=== PATIENT | male | born 1975 | race Caucasian/White ===

== ENCOUNTER 2021-06-26 07:48 | Emergency (ER) | payer MEDICARE ==
[2021-06-26 08:06] LABS: BASOPHIL 0.2 % (0-2); EOSINOPHIL 0 % (0-5); HCT 46.9 % (42.0-52.0); HGB 15.2 g/dl (13.2-18.0); LYMPHOCYTE 11.7 % (15-48); MCH 27.3 pg (25.0-31.0); MCHC 32.4 g/dL (32.0-36.0); MCV 84.4 fL (78.0-100.0); MONOCYTE 5.8 % (0-12); MPV 10.1 fL (6.0-9.5); NEUTROPHIL 74.8 % (41-80); NRBC 0.2; PLT 393 K/uL (150-400); RBC 5.56 M/uL (4.70-6.00); RDW 13.8 % (11.5-14.0); WBC 12.7 K/uL (4.0-10.5)
[2021-06-26 08:18] LABS: INR 1.1 (0.9-1.2); PROTHROMBIN TIME 13.6 SECONDS (11.8-13.4); PTT 25.3 SECONDS (24.4-34.7)
[2021-06-26 08:27] LABS: ALBUMIN 2.6 g/dL (3.4-5.0); BILIRUBIN - TOTAL 0.9 mg/dL (0.2-1.0); CREATININE 0.9 mg/dL (0.67-1.17); GLOBULIN (CALCULATION) 4.8 g/dL; MAGNESIUM 2.8 mg/dL (1.8-2.4); POTASSIUM 3.7 mmol/L (3.5-5.1); TOTAL PROTEIN 7.4 g/dL (6.4-8.2)
[2021-06-26 08:33] LABS: D-DIMER 3.15 ug/mLFEU (0.00-0.41); LACTIC ACID 3.2 mmol/L (0.4-1.9); PRO-BNP 416 pg/mL (<125)
== END 2021-06-26 12:50 | disposition other institution (70) ==
LOC: FER 07:48
PROVIDERS: Emergency Medicine
DX: U07.1 COVID-19 (principal); J96.00 Acute respiratory failure, unspecified whether with hypoxia or hypercapnia; R00.0 Tachycardia, unspecified; J45.909 Unspecified asthma, uncomplicated
CPT/HCPCS: 36415; 36600; 71045; 71275; 80053; 82803; 83605; 83735; 83880; 84484; 85025; 85379; 85610; 85730; 87040; 93005; J1100; J7030